=== PATIENT | female | born 1935 | race Caucasian/White ===

== ENCOUNTER 2019-10-10 19:46 | Emergency (ER) | payer MEDICARE ==
[2019-10-10 20:25] VITALS: BP 107/56; PULSE 69; RESP 18; TEMP 97.9
--- NOTE | 2019-10-10 20:48 | XR ---
EXAMINATION TYPE: XR chest 1V portable DATE OF EXAM: 10/10/2019 COMPARISON: NONE HISTORY: Fall. Pain. TECHNIQUE: FINDINGS: There is no heart failure nor confluent pneumonic infiltrate. There is mild subsegmental at electasis at the right lung base. Thoracic aorta is atheromatous. There is no pleural effusion. IMPRESSION: Mild right lung base subsegmental atelectasis.
--- NOTE | 2019-10-10 20:49 | XR ---
EXAMINATION TYPE: XR lumbar spine 2 or 3V DATE OF EXAM: 10/10/2019 COMPARISON: NONE HISTORY: Fall. Pain. TECHNIQUE: 3 views FINDINGS: There is osteopenia. There is anterior wedging of L1 and T12 up to 50%. Vertebra have anders l alignment. Sacroiliac joints are intact. IMPRESSION: Lumbar and thoracic compression fractures could be relatively acute.
--- NOTE | 2019-10-10 20:50 | XR ---
EXAMINATION TYPE: XR pelvis AP view DATE OF EXAM: 10/10/2019 COMPARISON: NONE HISTORY: Fall. Pain. TECHNIQUE: FINDINGS: Pelvic ring is intact. Proximal femurs and hip joints are intact. There is no sign of hip d ysplasia. Hip joint spaces are fairly normal. IMPRESSION: No acute abnormality of the pelvis.
--- NOTE | 2019-10-10 20:50 | XR ---
EXAMINATION TYPE: XR thoracic spine 2V DATE OF EXAM: 10/10/2019 COMPARISON: NONE HISTORY: Fall. Back pain TECHNIQUE: 3 views FINDINGS: Thoracic vertebra have normal alignment. There is anterior wedging of T12 and L1 up to 50%. There is no evidence of paraspinal mass. Posterior elements are intact. There is spurring of the end plates. IMPRESSION: Compression fractures at T12 and L1. Fractures could be relatively acute.
--- NOTE | 2019-10-10 21:26 | ED ---
General Adult HPI - General Chief complaint: Fall Stated complaint: Abd Pain Time Seen by Provider: 10/10/19 19:59 Source: patient, family, RN notes reviewed, old records reviewed Mode of arrival: EMS Limitations: altered mental status, physical limitation - History of Present Illness Initial comments: 84-year-old female history of dementia presenting for evaluation of back pain status post fall. Patient had 2 falls today both onto her backside. These were mechanical in nature. There is no head or neck trauma. Patient was transported by EMS for evaluation of pain complaints. She did have difficulty in breathing secondary to pain. No anticoagulation. Patient denying lower extremity pain. Denies chest pain or dyspnea. History of dementia and history is somewhat limited. - Related Data Previous Rx's Medication Instructions Recorded HYDROcodone/APAP 5-325MG [[place] 1 tab PO Q6HR PRN #12 tab 10/10/19 5-325] Allergies Allergy/AdvReac Type Severity Reaction Status Date / Time atorvastatin [From Lipitor] Allergy Unknown Verified 10/10/19 20:26 Review of Systems ROS Statement: Those systems with pertinent positive or pertinent negative responses have been documented in the HPI. ROS Other: All systems not noted in ROS Statement are negative. Past Medical History Past Medical History: Unable to Obtain, Dementia, Hyperlipidemia Additional Past Medical History / Comment(s): no code History of Any Multi-Drug Resistant Organisms: None Reported Past Surgical History: Unable to Obtain, Back Surgery Additional Past Surgical History / Comment(s): colon resection Smoking Status: Never smoker Past Alcohol Use History: None Reported Past Drug Use History: None Reported General Exam Limitations: altered mental status, physical limitation General appearance: alert, in no apparent distress Head exam: Present: atraumatic, normocephalic Eye exam: Present: normal appearance, PERRL Neck exam: Present: normal inspection. Absent: tenderness, meningismus Respiratory exam: Present: normal lung sounds bilaterally. Absent: respiratory distress, wheezes Cardiovascular Exam: Present: regular rate, normal rhythm GI/Abdominal exam: Present: soft. Absent: distended, tenderness, guarding Extremities exam: Present: full ROM, normal capillary refill, pedal edema. Absent: tenderness Back exam: Present: tenderness, vertebral tenderness (Mid back tenderness palpation, no step-off, no external signs of trauma) Neurological exam: Present: alert, other (good strength in bilateral legs,). Absent: motor sensory deficit Psychiatric exam: Present: normal affect, normal mood Skin exam: Present: warm, dry, intact Course Vital Signs 10/10/19 20:15 Temperature 97.9 F Pulse Rate 69 Respiratory 18 Rate Blood Pressure 107/56 O2 Sat by Pulse 97 Oximetry Medical Decision Making - Medical Decision Making 84 year old female with fall from a chair and fell from standing, 2 falls today. No head neck or back trauma. History of dementia the patient is currently at baseline. On exam she is very tender in the lower thoracic spine. No step-off. Good motor strength in both legs. She has compression fractures of both T12 and L1. She is comfortable while at rest. Pain only with palpation or significant movement. Patient can take Tylenol for pain and [place] for more severe pain. She will follow up for possible [employer] brace, with orthopedics. Disposition Clinical Impression: Fall, Fracture of thoracic vertebra, compression, Compression fracture of L1 lumbar vertebra Disposition: HOME SELF-CARE Condition: Fair Instructions (If sedation given, give patient instructions): Vertebral Com pression Fracture (ED) Prescriptions: HYDROcodone/APAP 5-325MG [[place] 5-325] 1 tab PO Q6HR PRN #12 tab PRN Reason: Pain Is patient prescribed a controlled substance at d/c from ED?: No Referrals: Pascual Cody MD [Primary Care Provider] - 1-2 days Time of Disposition: 21:25
[2019-10-10] MEDS: ACETAMINOPHEN TAB 325 MG TAB PO STA ×2 (21:30→21:42)
[2019-10-10] MEDS ORDERED: HYDROcodone/APAP 5-325MG 1 EACH TAB PO STA (21:36)
== END 2019-10-10 22:40 | disposition home or self-care (01) ==
LOC: EC 19:46 → SUPCPDRO 19:46 → EC 22:40
DX: S22.080A Wedge compression fracture of T11-T12 vertebra, initial encounter for closed fracture (principal); S32.010A Wedge compression fracture of first lumbar vertebra, initial encounter for closed fracture; F03.90 Unspecified dementia, unspecified severity, without behavioral disturbance, psychotic disturbance, mood disturbance, and anxiety; E78.5 Hyperlipidemia, unspecified; Z88.8 Allergy status to other drugs, medicaments and biological substances; W19.XXXA Unspecified fall, initial encounter
CPT/HCPCS: 71045; 72070; 72100; 72170; 99284

== ENCOUNTER 2020-06-12 04:52 | Observation (INO) | payer MEDICARE ==
[2020-06-12 06:17] LABS: Basophils % (A) 0 %; Eosinophils % (A) 0 %; HCT 42.6 % (34.0-46.0); HGB 13.3 gm/dL (11.4-16.0); Lymphocytes # (A) 0.4 k/uL (1.0-4.8); Lymphocytes % (A) 2 %; MCH 28.6 pg (25.0-35.0); MCHC 31.2 g/dL (31.0-37.0); MCV 91.7 fL (80.0-100.0); Mean Platelet Volume 7.2; Monocytes # (A) 0.9 k/uL (0-1.0); Monocytes % (A) 5 %; Neutrophils # (A) 16.2 k/uL (1.3-7.7); Neutrophils % (A) 92 %; Platelet Count 347 k/uL (150-450); RBC 4.65 m/uL (3.80-5.40); RDW 14.6 % (11.5-15.5); WBC 17.7 k/uL (3.8-10.6)
[2020-06-12 06:23] LABS: Albumin 3.1 g/dL (3.5-5.0); Calcium 8.8 mg/dL (8.4-10.2); Potassium 3.1 mmol/L (3.5-5.1); Total Bilirubin 0.6 mg/dL (0.2-1.3); Total Protein 6.2 g/dL (6.3-8.2)
[2020-06-12 06:27] LABS: Partial Thromboplastin Time 22.2 sec (22.0-30.0); Prothrombin Time 10.2 sec (9.0-12.0)
[2020-06-12] MEDS ORDERED: PANTOPRAZOLE 40 MG/10 ML VIAL IVP STA (06:42)
[2020-06-12] MEDS ORDERED: SODIUM CHLORIDE 0.9% 500 ML 500 ML IV STA (06:43)
[2020-06-12] MEDS ORDERED: NALOXONE 0.4 MG/ML 1 ML VIAL IV PRN (06:44)
[2020-06-12] MEDS ORDERED: SODIUM CHLORIDE 0.9% 1,000 ML IV SCH (06:45)
--- NOTE | 2020-06-12 07:11 | ED ---
GI Bleed HPI - General Chief complaint: GI Bleed Stated complaint: GI bleed Time Seen by Provider: 06/12/20 04:58 Source: EMS Mode of arrival: EMS Limitations: altered mental status (dementia) - History of Present Illness Initial comments: This patient is an 85-year-old woman transferred here from long-term care facility for passing blood. EMS reports that they were called about possibility of hematuria. When they arrived, was found the patient had large amount of melanotic stool in the adult diaper. The patient is not able to provide any history as she has marked underlying dementia. MD complaint: melena Onset/Timin -: hour(s) Improves with: none Worsens with: none Treatments Prior to Arrival: none - Related Data Home Medications Medication Instructions Recorded Confirmed ALPRAZolam [Xanax] 0.25 mg PO TID PRN 06/12/20 06/12/20 Acetaminophen Tab [Tylenol] 650 mg PO Q4H PRN MDD 12 TABS/24 06/12/20 06/12/20 HOURS Ascorbic Acid [Vitamin C] 500 mg PO BID@899,199906/12/20 06/12/20 Calcitonin Nasal [Fortical 1 spray NASAL DAILY@89906/12/20 06/12/20 (Miacalcin)] Cholecalciferol [Vitamin D3 (25 2,000 unit PO HS@199906/12/20 06/12/20 Mcg = 1000 Iu)] Ciprofloxacin HCl [Cipro] 500 mg PO BID@08,199906/12/20 06/12/20 Clotrimazole Cream [Lotrimin Cream] 1 applic TOPICAL BID PRN 06/12/20 06/12/20 Colloidal Oatmeal [Eucerin Eczema 1 applic TOPICAL DAILY PRN 06/12/20 06/12/20 Relief] Cyanocobalamin (Vitamin B-12) 1,000 mcg PO DAILY@89906/12/20 06/12/20 [Vitamin B-12] Escitalopram Oxalate [Lexapro] 20 mg PO DAILY@89906/12/20 06/12/20 Furosemide [Lasix] 40 mg PO DAILY@00 06/12/20 06/12/20 Kaolin/Pectin [Kaolin Pectin 30 ml PO DAILY PRN 06/12/20 06/12/20 Suspension] Magnesium Hydroxide [Milk of 2,400 mg PO HS PRN 06/12/20 06/12/20 Magnesia] Melatonin 3 mg PO HS@199906/12/20 06/12/20 Nystatin 100,000 Unit/gm Powd 1 applic TOPICAL BID@899,199906/12/20 06/12/20 [Mycostatin Powder] QUEtiapine [SEROquel] 25 mg PO TID@0900,1399,199906/12/20 06/12/20 Simvastatin 40 mg PO HS@199906/12/20 06/12/20 Spironolactone 25 mg PO DAILY@89906/12/20 06/12/20 Zinc Sulfate 220 mg PO DAILY@89906/12/20 06/12/20 busPIRone HCL 15 mg PO TID@0900,1200,1800 06/12/20 06/12/20 guaiFENesin SYRUP 100MG/5ML 10 mg PO Q6H PRN 06/12/20 06/12/20 [Robitussin] metOLazone [Zaroxolyn] 5 mg PO DAILY@0806/12/20 06/12/20 traMADol-ACETAMINOP 37.5-325MG 1 tab PO BID@899,199906/12/20 06/12/20 [Ultracet] Allergies Allergy/AdvReac Type Severity Reaction Status Date / Time atorvastatin [From Lipitor] Allergy Unknown Verified 06/12/20 09:12 Review of Systems ROS Statement: Those systems with pertinent positive or pertinent negative responses have been documented in the HPI. ROS Other: All systems not noted in ROS Statement are negative. Limitations: ROS unobtainable due to patients medical condition (dementia) Past Medical History Past Medical History: Unable to Obtain, Dementia, Hyperlipidemia Additional Past Medical History / Comment(s): no code History of Any Multi-Drug Resistant Organisms: None Reported Past Surgical History: Unable to Obtain, Back Surgery Additional Past Surgical History / Comment(s): colon resection Past Alcohol Use History: None Reported Past Drug Use History: None Reported General Exam Limitations: altered mental status General appearance: alert, in no apparent distress Head exam: Present: atraumatic, normocephalic Eye exam: Present: normal appearance Neck exam: Present: normal inspection Respiratory exam: Present: normal lung sounds bilaterally. Absent: respiratory distress, wheezes, rales, rhonchi, stridor Cardiovascular Exam: Present: normal rhythm, tachycardia, normal heart sounds. Absent: systolic murmur, diastolic murmur, rubs, gallop GI/Abdominal exam: Present: soft. Absent: distended, tenderness, guarding, rebound, rigid, mass, pulsatile mass Extremities exam: Present: normal inspection, normal capillary refill. Absent: tenderness Back exam: Present: normal inspection. Absent: tenderness Neurological exam: Present: alert Skin exam: Present: warm, dry, intact, normal color. Absent: rash Course Vital Signs 06/12/20 06/12/20 06/12/20 04:54 06:02 07:54 Temperature 97.5 F L 97.7 F Pulse Rate 113 H 117 H 106 H Respiratory 16 16 14 Rate Blood Pressure 112/78 108/58 104/61 O2 Sat by Pulse 95 97 98 Oximetry 06/12/20 06/12/20 06/12/20 09:26 11:00 15:19 Temperature 97.6 F 97.8 F Pulse Rate 106 H 107 H 112 H Respiratory 14 14 17 Rate Blood Pressure 102/66 113/87 98/68 O2 Sat by Pulse 97 97 97 Oximetry Medical Decision Making - Medical Decision Making patient is an 85-year-[facility]. The transfer paperwork does indicate that patient is no code. The patient will be admitted with GI consult. Started on Tylox. Hemodynamically patient is mildly tachycardic but blood pressure is currently normal. - Lab Data Result diagrams: 06/12/20 10:54 06/12/20 10:54 Lab Results 06/12/20 06/12/20 06/12/20 Range/Units 05:14 05:14 05:14 WBC 17.7 H (3.8-10.6) k/uL RBC 4.65 (3.80-5.40) m/uL Hgb 13.3 (11.4-16.0) gm/dL Hct 42.6 (34.0-46.0) % MCV 91.7 (80.0-100.0) fL MCH 28.6 (25.0-35.0) pg MCHC 31.2 (31.0-37.0) g/dL RDW 14.6 (11.5-15.5) % Plt Count 347 (150-450) k/uL Neutrophils % 92 % Lymphocytes % 2 % Monocytes % 5 % Eosinophils % 0 % Basophils % 0 % Neutrophils # 16.2 H (1.3-7.7) k/uL Lymphocytes # 0.4 L (1.0-4.8) k/uL Monocytes # 0.9 (0-1.0) k/uL Eosinophils # 0.0 (0-0.7) k/uL Basophils # 0.0 (0-0.2) k/uL PT 10.2 (9.0-12.0) sec INR 1.0 (<1.2) APTT 22.2 (22.0-30.0) sec Sodium 134 L (137-145) mmol/L Potassium 3.1 L (3.5-5.1) mmol/L Chloride 88 L (98-107) mmol/L Carbon Dioxide 34 H (22-30) mmol/L Anion Gap 12 mmol/L BUN 124 H* (7-17) mg/dL Creatinine 1.52 H (0.52-1.04) mg/dL Est GFR (CKD-EPI)AfAm 36 (>60 ml/min/1.73 sqM) Est GFR (CKD-EPI)NonAf 31 (>60 ml/min/1.73 sqM) Glucose 378 H (74-99) mg/dL Calcium 8.8 (8.4-10.2) mg/dL Total Bilirubin 0.6 (0.2-1.3) mg/dL AST 26 (14-36) U/L ALT 18 (4-34) U/L Alkaline Phosphatase 120 (38-126) U/L Troponin I (0.000-0.034) ng/mL Total Protein 6.2 L (6.3-8.2) g/dL Albumin 3.1 L (3.5-5.0) g/dL Blood Type Blood Type Confirm Blood Type Recheck Bld Type Recheck Status Antibody Screen Spec Expiration Date 06/12/20 06/12/20 06/12/20 Range/Units 05:14 05:14 05:15 WBC (3.8-10.6) k/uL RBC (3.80-5.40) m/uL Hgb (11.4-16.0) gm/dL Hct (34.0-46.0) % MCV (80.0-100.0) fL MCH (25.0-35.0) pg MCHC (31.0-37.0) g/dL RDW (11.5-15.5) % Plt Count (150-450) k/uL Neutrophils % % Lymphocytes % % Monocytes % % Eosinophils % % Basophils % % Neutrophils # (1.3-7.7) k/uL Lymphocytes # (1.0-4.8) k/uL Monocytes # (0-1.0) k/uL Eosinophils # (0-0.7) k/uL Basophils # (0-0.2) k/uL PT (9.0-12.0) sec INR (<1.2) APTT (22.0-30.0) sec Sodium (137-145) mmol/L Potassium (3.5-5.1) mmol/L Chloride (98-107) mmol/L Carbon Dioxide (22-30) mmol/L Anion Gap mmol/L BUN (7-17) mg/dL Creatinine (0.52-1.04) mg/dL Est GFR (CKD-EPI)AfAm (>60 ml/min/1.73 sqM) Est GFR (CKD-EPI)NonAf (>60 ml/min/1.73 sqM) Glucose (74-99) mg/dL Calcium (8.4-10.2) mg/dL Total Bilirubin (0.2-1.3) mg/dL AST (14-36) U/L ALT (4-34) U/L Alkaline Phosphatase (38-126) U/L Troponin I 0.044 H* (0.000-0.034) ng/mL Total Protein (6.3-8.2) g/dL Albumin (3.5-5.0) g/dL Blood Type A Positive Blood Type Confirm A Positive Blood Type Recheck No Previous Record Bld Type Recheck Status CABO Indicated Antibody Screen NEGATIVE Spec Expiration Date 06/15/2020 - 2313 Disposition Clinical Impression: Melena, Elevated troponin Disposition: ADMITTED IP TO THIS [facility] Condition: Poor
--- NOTE | 2020-06-12 09:45 | P.HPIM ---
History of Present Illness H&P Date: 06/12/20 Chief Complaint: Altered mental status This is an 85-year-old female who was transferred from a long-term medical facility. Patient initially exhibited increased altered mental status with underlying dementia. Patient is a poor historian. Patient does respond to pain and verbal stimuli. Patient hernandez snot open her eyes often. Her daughter, Elizabeth, was at bedside. Most of the HPI was taken from medical documentation and patient's daughter. Documentation states that EMS was called to the [facility] initially for hematuria. Once EMS arrived and her pad was examined, it was found that she had what appeared to be melanotic stool. Workup in the ER revealed a white blood cell count 17.7 sodium of 134 potassium 3.1 the BUN 124 creatinine 1.5 to glucose 378. Hemoglobin is stable at 13.3. Urine culture obtained from 06/07/2020 revealed E. coli. Patient was treated with oral ciprofloxacin. Patient denies chest pain, shortness breath, nausea, vomiting, fever, or chills. On physical exam patient exhibited abdominal pain with rebound tenderness and no gaurding. Review of Systems A 14 point review of systems was assessed. Patient was only positive for those assessment HPI Past Medical History Past Medical History: Unable to Obtain, Dementia, Hyperlipidemia Additional Past Medical History / Comment(s): no code History of Any Multi-Drug Resistant Organisms: None Reported Past Surgical History: Unable to Obtain, Back Surgery Additional Past Surgical History / Comment(s): colon resection Past Alcohol Use History: None Reported Past Drug Use History: None Reported Medications and Allergies Home Medications Medication Instructions Recorded Confirmed Type ALPRAZolam [Xanax] 0.25 mg PO TID PRN 06/12/20 06/12/20 History Acetaminophen Tab [Tylenol] 650 mg PO Q4H PRN MDD 12 TABS/24 06/12/20 06/12/20 History HOURS Ascorbic Acid [Vitamin C] 500 mg PO BID@899,199906/12/20 06/12/20 History Calcitonin Nasal [Fortical 1 spray NASAL DAILY@0900 06/12/20 06/12/20 History (Miacalcin)] Cholecalciferol [Vitamin D3 (25 2,000 unit PO HS@199906/12/20 06/12/20 History Mcg = 1000 Iu)] Ciprofloxacin HCl [Cipro] 500 mg PO BID@0800,199906/12/20 06/12/20 History Clotrimazole Cream [Lotrimin Cream] 1 applic TOPICAL BID PRN 06/12/20 06/12/20 History Colloidal Oatmeal [Eucerin Eczema 1 applic TOPICAL DAILY PRN 06/12/20 06/12/20 History Relief] Cyanocobalamin (Vitamin B-12) 1,000 mcg PO DAILY@89906/12/20 06/12/20 History [Vitamin B-12] Escitalopram Oxalate [Lexapro] 20 mg PO DAILY@89906/12/20 06/12/20 History Furosemide [Lasix] 40 mg PO DAILY@89906/12/20 06/12/20 History Kaolin/Pectin [Kaolin Pectin 30 ml PO DAILY PRN 06/12/20 06/12/20 History Suspension] Magnesium Hydroxide [Milk of 2,400 mg PO HS PRN 06/12/20 06/12/20 History Magnesia] Melatonin 3 mg PO HS@199906/12/20 06/12/20 History Nystatin 100,000 Unit/gm Powd 1 applic TOPICAL BID@899,199906/12/20 06/12/20 History [Mycostatin Powder] QUEtiapine [SEROquel] 25 mg PO TID@09,1399,199906/12/20 06/12/20 History Simvastatin 40 mg PO HS@199906/12/20 06/12/20 History Spironolactone 25 mg PO DAILY@89906/12/20 06/12/20 History Zinc Sulfate 220 mg PO DAILY@89906/12/20 06/12/20 History busPIRone HCL 15 mg PO TID@0900,1200,1800 06/12/20 06/12/20 History guaiFENesin SYRUP 100MG/5ML 10 mg PO Q6H PRN 06/12/20 06/12/20 History [Robitussin] metOLazone [Zaroxolyn] 5 mg PO DAILY@82906/12/20 06/12/20 History traMADol-ACETAMINOP 37.5-325MG 1 tab PO BID@899,199906/12/20 06/12/20 History [Ultracet] Allergies Allergy/AdvReac Type Severity Reaction Status Date / Time atorvastatin [From Lipitor] Allergy Unknown Verified 06/12/20 09:12 Physical Exam Osteopathic Statement: *. No significant issues noted on an osteopathic structural exam other than those noted in the History and Physical/Consult. Vitals: Vital Signs Temp Pulse Resp BP Pulse Ox 06/12/20 09:26 97.6 F 106 H 14 102/66 97 06/12/20 07:54 97.7 F 106 H 14 104/61 98 06/12/20 06:02 117 H 16 108/58 97 06/12/20 04:54 97.5 F L 113 H 16 112/78 95 Intake and Output 06/11/20 06/12/20 06/12/20 22:59 06:59 14:59 Other: Weight 90.718 kg General: [non toxic], [no distress], [appears at stated age] Derm: [warm], [dry] Head: [atraumatic], [normocephalic], [symmetric] Eyes: [EOMI], [no lid lag], [anicteric sclera] Mouth: [no lip lesion], [mucus membranes moist] Cardiovascular: [S1S2 reg], [no murmur], [positive posterior tibial pulse bilateral], Lungs: [CTA bilateral], [no rhonchi, no rales] , [no accessory muscle use] Abdominal: [soft], [ POSITIVEvtenderness to palpation diffuse], [ POSITIVE guarding], [no appreciable organomegaly] Ext: [no gross muscle atrophy], [no edema], [no contractures] Neuro: [ CN II-XI grossly intact], [no focal neuro deficits] Psych: [does not open eyes reponds to pain and verbal stimuli] Results CBC & Chem 7: 06/12/20 05:14 06/12/20 05:14 Labs: Abnormal Lab Results - Last 24 Hours (Table) 06/12/20 06/12/20 06/12/20 Range/Units 05:14 05:14 05:14 WBC 17.7 H (3.8-10.6) k/uL Neutrophils # 16.2 H (1.3-7.7) k/uL Lymphocytes # 0.4 L (1.0-4.8) k/uL Sodium 134 L (137-145) mmol/L Potassium 3.1 L (3.5-5.1) mmol/L Chloride 88 L (98-107) mmol/L Carbon Dioxide 34 H (22-30) mmol/L BUN 124 H* (7-17) mg/dL Creatinine 1.52 H (0.52-1.04) mg/dL Glucose 378 H (74-99) mg/dL Troponin I 0.044 H* (0.000-0.034) ng/mL Total Protein 6.2 L (6.3-8.2) g/dL Albumin 3.1 L (3.5-5.0) g/dL Thrombosis Risk Factor Assmnt - DVT/VTE Prophylaxis DVT/VTE Prophylaxis: Pharmacologic Prophylaxis ordered Assessment and Plan Assessment: 1. Sepsis secondary to E. coli UTI Culture obtained from 06/07/2020 Rocephin to be initiated after cultures are taken Cultures ordered Repeat UA ordered slow IV hydration secondary to history of heart failure per daughter reassess fluid balance in the AM. Diuretics will be held. 2. Abdominal pain with acute GI bleed Check fecal occult blood Trend hemoglobin PPI daily GI Consult CT of abdomen/pelvis without contrast NPO 3. MANUEL secondary to #1 and diuretics IV fluids Monitor BUN and creatinine Hold dieuretics Monitor fluids secondary to history of heart failure 4. Hyperglycemia secondary to Hx of diabetes (diet controlled) Insulin sliding scale Check hemoglobin A1c 5. Electrolyte abnormalities with mild hypokalemia and hyponatremia Replacements provided 6. elevated troponin level likely secondary to #1 Trend troponin 7. History of hyperlipidemia Restart statin 8. Dementia 9. Debility 10. A.M. labs 11. GI DVT prophylaxis 12. Consult Hospice End of life counselling discussed with daughter Elizabeth, . She would like to talk to hospice. Daughter would like to get updates from primary care team daily. Prognosis is poor. Patient is a DNR PCP is Dr. Cody Greater than 45 minutes spent with greater than 50% face to face contact coordinating care and counselling. Time with Patient: Greater than 30
[2020-06-12] MEDS ORDERED: [UNRECOGNIZED DRUG - OTHER] PO PRN (10:28)
[2020-06-12] MEDS ORDERED: MAGNESIUM HYDROXIDE 400 MG/5 ML PO PRN (10:28)
[2020-06-12] MEDS ORDERED: ALPRAZolam 0.25 MG TAB PO PRN (10:28)
[2020-06-12] MEDS ORDERED: ACETAMINOPHEN TAB 325 MG TAB PO PRN (10:28)
[2020-06-12] MEDS ORDERED: COLLOIDAL OATMEAL TOPICAL PRN (10:28)
[2020-06-12] MEDS ORDERED: CLOTRIMAZOLE 1% CREAM 15 GM TUBE TOPICAL PRN (10:28)
[2020-06-12] MEDS ORDERED: MORPHINE SULFATE 2 MG/ML SYRINGE IVP PRN (10:44)
[2020-06-12] MEDS ORDERED: LORazepam 2 MG/ML INJ IV PRN (10:45)
[2020-06-12] MEDS: POTASSIUM CHLORIDE 10 MEQ in WATER FOR INJECTION 1 100ML.BAG IVPB SCH ×4 (11:12→15:17)
[2020-06-12 11:32] LABS: HCT 41.8 % (34.0-46.0); HGB 12.7 gm/dL (11.4-16.0); MCH 28.4 pg (25.0-35.0); MCHC 30.5 g/dL (31.0-37.0); MCV 92.9 fL (80.0-100.0); Mean Platelet Volume 7.2; Platelet Count 320 k/uL (150-450); RBC 4.49 m/uL (3.80-5.40); RDW 14.6 % (11.5-15.5); WBC 16.6 k/uL (3.8-10.6)
[2020-06-12 11:38] LABS: Calcium 8.3 mg/dL (8.4-10.2)
[2020-06-12 11:44] LABS: Appearance,Urine Cloudy (Clear); Bacteria,Urine Moderate /hpf; Bilirubin,Urine Negative (Negative); Blood,Urine Small (Negative); Color,Urine Yellow; Glucose,Urine (UA) 1+ (Negative); Hyaline Casts,Urine 10 /lpf (0-2); Ketones,Urine Negative (Negative); Leukocyte Esterase,Urine Large (Negative); Mucus,Urine Rare /hpf; Nitrite,Urine Negative (Negative); Protein,Urine Trace (Negative); RBC,Urine 40 /hpf (0-5); Specific Gravity,Urine 1.018 (1.001-1.035); Squamous Epithelial Cell,Urine 1 /hpf (0-4); Urobilinogen,Urine <2.0 mg/dL (<2.0); WBC,Urine 20 /hpf (0-5)
--- NOTE | 2020-06-12 11:56 | XR ---
EXAMINATION TYPE: XR chest 2V DATE OF EXAM: 06/12/2020 COMPARISON: 10/10/2019 HISTORY: Shortness of breath TECHNIQUE: Frontal and lateral views of the chest are obtained. FINDINGS: Scattered senescent parenchymal changes noted. Hyperinflation compatible with COPD. There is increased linear density the left lung base which may reflect atelectasis or parenchymal sca rring. The remainder of the lungs are clear. There is a chronic elevation of the left hemidiaphragm. Heart size is stable. Mediastinal structures are stable and grossly unremarkable. No evidence for hilar prominence. Degenerative changes dorsal spine. IMPRESSION: 1. There is increased linear density the left lung base which may reflect atelectasis or parenchymal scarring. The remainder of the lungs are clear.
--- NOTE | 2020-06-12 12:16 | CT ---
EXAMINATION TYPE: CT abdomen pelvis wo con DATE OF EXAM: 06/12/2020 COMPARISON: None HISTORY: pain, acute gi bleed CT DLP: 801 mGycm Examination of the solid and hollow viscera is limited given the lack of contrast. FINDINGS: LUNG BASES: No evidence for nodule. No evidence for infiltrate. LIVER/GB: The gallbladder is unremarkable. No space-occupying hepatic lesion. PANCREAS: No pancreatic mass identified. No inflammatory process seen. SPLEEN: No evidence for splenomegaly. No intrasplenic lesions seen. ADRENALS: No adrenal nodules identified. No evidence for thickening. KIDNEYS: No evidence for renal mass. No nephrolithiasis. No hydronephrosis. Only balloon catheter is noted. The kidneys are atrophic. Large cyst is seen arising from the left kidney. BOWEL: There Is a large amount of pneumoperitoneum within the mid and lower abdomen. The site of perf oration is difficult to localize with certainty however on axial image 56 there appears to be a colle ction adjacent to the sigmoid colon measuring 5.8 x 6.7 cm which may reflect abscess with linear area of air extending to the large site of a pneumoperitoneum. Large amount of stool is seen within the r ecto sigmoid region. Lymph nodes: No evidence for adenopathy greater than 1 cm. Abdominal aorta: Atheromatous changes seen. No evidence for aneurysm. Genital organs: There is a catheter device noted within the vaginal vault with the insufflated the ba lloon device. Correlate clinically. Other: No significant abnormality. IMPRESSION: 1. There is a large amount of pneumoperitoneum noted within the mid and lower abdomen. As noted there is a collection and curvilinear air identified adjacent to the sigmoid colon which may reflect the s ite of perforation with underlying abscess. Strict clinical correlation is advised. A [place] critical message alert has been initiated for Nia Kaufman MD via the [employer] System on 06/12/2020 12:14 PM. This message alert has been sent to Nia Kaufman MD via the preferences provided by the clinician for the receipt of Radiology Critical Findings. Message ID [id number].
[2020-06-12] MEDS ORDERED: INSULIN ASPART (NovoLOG) 100 UNIT/ML VIAL SQ SCH (12:30)
--- NOTE | 2020-06-12 12:38 | P.PN ---
Progress Note - Text Progress Note Date: 06/12/20 CT of the abdomen/pelvis noted with large pneumoperitineum with a 5.8x 6.7 cm abscess. I discussed the results with patient's daughter, Elizabeth. I advised her this is an urgent matter, and her mother would require surgery immediately. Daughter agreed based on her age, co-morbidities, and quality of life, with a poor prognosis no life saving measures are to be taken, this includes surgery. A STAT hospice consult will be placed. Comfort measures are to be taken. I tried called patient's son Tanner . He did not answer, I left a message to return my call.
--- NOTE | 2020-06-12 13:11 | P.PN ---
Progress Note - Text Progress Note Date: 06/12/20 I was finally able to get a hold of patient's son Tanner and informed him about the critical status that his mother Verona is in. The perforated bowel with an abscess on CT was discussed. Patient's mother is septic. Tanner was informed that his mother was very sick and would require surgery immediately if that is what the patient and family wanted. However, secondary to patient's age, poor prognosis, decreased quality of life and co-morbidities it has been decided by the patient, Elizabeth and Tanner that the patient is a DNR and hospice would be the most reasonable action to take. I personally spoke to hospice and informed them about the patient. They are to see her today (phone )
[2020-06-12 13:20] LABS: Glucose,Whole Blood 387 mg/dL (75-99)
[2020-06-12 15:20] VITALS: RESP 17
[2020-06-12 16:50] VITALS: BP 89/60; PULSE 106; TEMP 98.4
[2020-06-12] MEDS ORDERED: CHOLECALCIFEROL 1,000 UNIT TAB PO SCH (20:00)
[2020-06-12] MEDS ORDERED: ASCORBIC ACID 500 MG TAB PO SCH (20:00)
[2020-06-12] MEDS ORDERED: NYSTATIN 100,000 UNIT/GM POWD 15 GM TOPICAL SCH (20:00)
[2020-06-12] MEDS ORDERED: traMADol-ACETAMINOP 37.5-325MG 1 EACH TAB PO SCH (20:00)
[2020-06-12] MEDS ORDERED: NON FORMULARY DRUG (Simvastatin [Simvastatin] 40 MG Tablet) PO SCH (20:00)
[2020-06-12] MEDS ORDERED: QUEtiapine 25 MG TAB PO SCH (21:00)
[2020-06-13] MEDS ORDERED: PANTOPRAZOLE 40 MG/10 ML VIAL IV SCH (09:00)
[2020-06-13] MEDS ORDERED: ZINC SULFATE 220 MG CAP PO SCH (09:00)
[2020-06-13] MEDS ORDERED: NON FORMULARY DRUG (Cyanocobalamin (Vitamin B-12) [Vitamin B-12] 1,000 MCG Tablet) PO SCH (09:00)
[2020-06-13] MEDS ORDERED: CALCITONIN 200 USP/1 NASAL SPRAY 3.7ML BTL NASAL SCH (09:00)
== END 2020-06-12 18:16 | disposition hospice, inpatient (51) ==
LOC: EC 04:52 → 3SCARD 06:46 → INTOOBSV 06:46 → 6NMEDSUR 13:40
PROVIDERS: ADMIT Internal Medicine; ATTEND Internal Medicine
DX: A41.51 Sepsis due to Escherichia coli [E. coli] (principal); N39.0 Urinary tract infection, site not specified; K92.1 Melena; I50.9 Heart failure, unspecified; E11.65 Type 2 diabetes mellitus with hyperglycemia; E87.8 Other disorders of electrolyte and fluid balance, not elsewhere classified; E78.5 Hyperlipidemia, unspecified; E87.6 Hypokalemia; E87.1 Hypo-osmolality and hyponatremia; Z51.5 Encounter for palliative care; F03.90 Unspecified dementia, unspecified severity, without behavioral disturbance, psychotic disturbance, mood disturbance, and anxiety; R53.81 Other malaise; Z79.4 Long term (current) use of insulin; Z79.899 Other long term (current) drug therapy; Z88.8 Allergy status to other drugs, medicaments and biological substances
CPT/HCPCS: 96368; 96361; 96365; 96366; 96375; 99285; 36415; 86900; 86901; 80053; 83605; 84484; 85025; 85027; 85610; 85730; 86850; 81001; 87040; 87086; 83036; 71046; 74176; G0378 ×2; J0696; J2270; J3480; C9113; 80048

== ENCOUNTER 2020-06-12 16:47 | Inpatient (IN) | payer MEDICAID ==
[2020-06-12] MEDS ORDERED: ONDANSETRON 4 MG/2 ML VIAL IVP PRN (16:50)
[2020-06-12] MEDS ORDERED: LORazepam 2 MG/ML INJ IV PRN (16:50)
[2020-06-12] MEDS ORDERED: ACETAMINOPHEN SUPPOSITORY 650 MG SUPP RECTAL PRN (16:50)
[2020-06-12] MEDS ORDERED: SCOPOLAMINE 1.5MG/72HR PATCH TRANSDERM SCH (19:00)
[2020-06-12] MEDS: MORPHINE SULFATE 2 MG/ML SYRINGE IV PRN (20:23)
[2020-06-12 21:15] VITALS: BP 92/60; PULSE 105; TEMP 97.4
[2020-06-13] MEDS: MORPHINE SULFATE 2 MG/ML SYRINGE IV PRN ×4 (01:03→17:21)
[2020-06-13 04:35] VITALS: RESP 20
--- NOTE | 2020-06-13 09:50 | P.HPIM ---
History of Present Illness H&P Date: 06/12/20 Chief Complaint: Hospice 85 y/o female presents to [facility] with acute mental status changes. Open arrival to the ED patient was evaluated for GI bleed. Hemoglobin was normal. Patient was septic. Once admitted, further work-up revealed pneumoperitoneum secondary to perforated bowel with abscess. Hospice was consulted and family agreed to place patient in Hospice with comfort measures. Review of Systems A 14 point review of symptoms was assessed Patient was positive for acute mental status changes, abdominal pain, and fatigue. All other ROS were negative. Past Medical History Past Medical History: Dementia, Diabetes Mellitus, Hyperlipidemia, Hypertension, Memory Impairment Additional Past Medical History / Comment(s): diverticulitis, pt is no code History of Any Multi-Drug Resistant Organisms: None Reported Past Surgical History: Unable to Obtain, Back Surgery Additional Past Surgical History / Comment(s): colon resection Past Anesthesia/Blood Transfusion Reactions: No Reported Reaction Smoking Status: Never smoker Past Alcohol Use History: None Reported Past Drug Use History: None Reported Medications and Allergies Home Medications Medication Instructions Recorded Confirmed Type ALPRAZolam [Xanax] 0.25 mg PO TID PRN 06/12/20 06/12/20 History Acetaminophen Tab [Tylenol] 650 mg PO Q4H PRN MDD 12 TABS/24 06/12/20 06/12/20 History HOURS Ascorbic Acid [Vitamin C] 500 mg PO BID@0900,199906/12/20 06/12/20 History Calcitonin Nasal [Fortical 1 spray NASAL DAILY@0900 06/12/20 06/12/20 History (Miacalcin)] Cholecalciferol [Vitamin D3 (25 2,000 unit PO HS@199906/12/20 06/12/20 History Mcg = 1000 Iu)] Ciprofloxacin HCl [Cipro] 500 mg PO BID@0800,199906/12/20 06/12/20 History Clotrimazole Cream [Lotrimin Cream] 1 applic TOPICAL BID PRN 06/12/20 06/12/20 History Colloidal Oatmeal [Eucerin Eczema 1 applic TOPICAL DAILY PRN 06/12/20 06/12/20 History Relief] Cyanocobalamin (Vitamin B-12) 1,000 mcg PO DAILY@0900 06/12/20 06/12/20 History [Vitamin B-12] Escitalopram Oxalate [Lexapro] 20 mg PO DAILY@0900 06/12/20 06/12/20 History Furosemide [Lasix] 40 mg PO DAILY@89906/12/20 06/12/20 History Kaolin/Pectin [Kaolin Pectin 30 ml PO DAILY PRN 06/12/20 06/12/20 History Suspension] Magnesium Hydroxide [Milk of 2,400 mg PO HS PRN 06/12/20 06/12/20 History Magnesia] Melatonin 3 mg PO HS@199906/12/20 06/12/20 History Nystatin 100,000 Unit/gm Powd 1 applic TOPICAL BID@899,199906/12/20 06/12/20 History [Mycostatin Powder] QUEtiapine [SEROquel] 25 mg PO TID@0900,1399,199906/12/20 06/12/20 History Simvastatin 40 mg PO HS@199906/12/20 06/12/20 History Spironolactone 25 mg PO DAILY@0906/12/20 06/12/20 History Zinc Sulfate 220 mg PO DAILY@89906/12/20 06/12/20 History busPIRone HCL 15 mg PO TID@0900,1200,1800 06/12/20 06/12/20 History guaiFENesin SYRUP 100MG/5ML 10 mg PO Q6H PRN 06/12/20 06/12/20 History [Robitussin] metOLazone [Zaroxolyn] 5 mg PO DAILY@0830 06/12/20 06/12/20 History traMADol-ACETAMINOP 37.5-325MG 1 tab PO BID@899,199906/12/20 06/12/20 History [Ultracet] Allergies Allergy/AdvReac Type Severity Reaction Status Date / Time atorvastatin [From Lipitor] Allergy Unknown Verified 06/12/20 09:12 Physical Exam Osteopathic Statement: *. No significant issues noted on an osteopathic structural exam other than those noted in the History and Physical/Consult. Vitals: Vital Signs Temp Pulse Resp BP Pulse Ox 06/13/20 04:00 20 06/13/20 01:00 20 06/13/20 00:00 22 06/12/20 20:50 97.4 F L 105 H 22 92/60 95 06/12/20 20:00 105 H 20 Intake and Output 11/08/20 11/09/20 11/09/20 22:59 06:59 14:59 Intake Total 20 Output Total 800 Balance 20 -800 Intake: Oral 20 Output: Urine 800 Other: Voiding Method Indwelling Catheter Indwelling Catheter Weight 90.7 kg Gen patient has a history of dementia. Patient appears well hydrated. Toxic Heart sinus tachycardia Lungs CTAB Abdomen tender to palpation with rebound and guarding Extremities negative cyanosis, edema, or erythema Psych Alert not oriented to place, time, situation Neuro CN II-IIX intact Thrombosis Risk Factor Assmnt - Choose All That Apply Any of the Below Risk Factors Present?: Yes Each Factor Represents 1 point: Swollen legs (current) Other Risk Factors: Yes Each Risk Factor Represents 2 Points: Patient confined to bed Each Risk Factor Represents 3 Points: Age 75 years or older Thrombosis Risk Factor Assessment Total Risk Factor Score: 6 Thrombosis Risk Factor Assessment Level: High Risk Assessment and Plan Assessment: 1. Sepsis secondary to perforated bowel with abscess Hospice recommendations appreciated 2. Hx of DM, demenetia, HLD, and CHF conservative management per hospice care Hospice care discussed with family and nursing staff. Greater than 60 minutes spent with greater than 50% face to face contact coordinating care and discussing end of life decision making Time with Patient: Greater than 30
--- NOTE | 2020-06-13 10:03 | P.DS ---
Providers Date of admission: 06/12/20 18:19 Expected date of discharge: 06/12/20 Attending physician: Nia Kaufman MD Consults: Hospice Primary care physician: Stated None Hospital Course: Admit diagnosis: Altered Mental Status Sepsis Pneumoperitoneum Perforated bowel Abdominal Abscess DM HLD CHF Discharge diagnosis: Hospice care plan Sepsis Perforated bowel Abdominal Abscess Altered mental status DM HLD CHF 85 y/o female present to [facility] from custodial care facility for altered mental status. Upon arrival there was concern for GI bleed. Hemoglobin was normal. Once patient was admitted and further assessment was provided, patient was found to be septic with rebound tenderness of the abdomen. CT of the abdomen was ordered and revealed a pneumoperiteum with abscess. End of care planning was discussed with family and it was decided that patient is to go into hospice. Condition: serious Activity: as tolerated Diet: as tolerated Follow-up with in patient Hospice Care Patient Condition at Discharge: Serious Plan - Discharge Summary Discharge Rx Participant: Yes New Discharge Prescriptions: No Action guaiFENesin SYRUP 100MG/5ML [Robitussin] 10 mg PO Q6H PRN PRN Reason: Cough Acetaminophen Tab [Tylenol] 650 mg PO Q4H PRN MDD 12 TABS/24 HOURS PRN Reason: Pain Or Fever > 100 Magnesium Hydroxide [Milk of Magnesia] 2,400 mg PO HS PRN PRN Reason: Constipation Kaolin/Pectin [Kaolin Pectin Suspension] 30 ml PO DAILY PRN PRN Reason: Diarrhea Colloidal Oatmeal [Eucerin Eczema Relief] 1 applic TOPICAL DAILY PRN PRN Reason: DRY SKIN ON BOTH FEET Clotrimazole Cream [Lotrimin Cream] 1 applic TOPICAL BID PRN PRN Reason: Skin Irritation ALPRAZolam [Xanax] 0.25 mg PO TID PRN PRN Reason: Anxiety Zinc Sulfate 220 mg PO DAILY@0900 Cholecalciferol [Vitamin D3 (25 Mcg = 1000 Iu)] 2,000 unit PO HS@1999 Ascorbic Acid [Vitamin C] 500 mg PO BID@899,1999 Cyanocobalamin (Vitamin B-12) [Vitamin B-12] 1,000 mcg PO DAILY@0900 traMADol-ACETAMINOP 37.5-325MG [Ultracet] 1 tab PO BID@899,1999 Spironolactone 25 mg PO DAILY@0900 Simvastatin 40 mg PO HS@1999 QUEtiapine [SEROquel] 25 mg PO TID@09,1399,1999 metOLazone [Zaroxolyn] 5 mg PO DAILY@08 Nystatin 100,000 Unit/gm Powd [Mycostatin Powder] 1 applic TOPICAL BID@899,1999 Melatonin 3 mg PO HS@1999 Furosemide [Lasix] 40 mg PO DAILY@899 Escitalopram Oxalate [Lexapro] 20 mg PO DAILY@899 Ciprofloxacin HCl [Cipro] 500 mg PO BID@799,1999 busPIRone HCL 15 mg PO TID@0900,1200,1800 Calcitonin Nasal [Fortical (Miacalcin)] 1 spray NASAL DAILY@09 Discharge Medication List ALPRAZolam [Xanax] 0.25 mg PO TID PRN 06/12/20 [History] Acetaminophen Tab [Tylenol] 650 mg PO Q4H PRN MDD 12 TABS/24 HOURS 06/12/20 [History] Ascorbic Acid [Vitamin C] 500 mg PO BID@899,199906/12/20 [History] Calcitonin Nasal [Fortical (Miacalcin)] 1 spray NASAL DAILY@89906/12/20 [History] Cholecalciferol [Vitamin D3 (25 Mcg = 1000 Iu)] 2,000 unit PO HS@199906/12/20 [History] Ciprofloxacin HCl [Cipro] 500 mg PO BID@799,199906/12/20 [History] Clotrimazole Cream [Lotrimin Cream] 1 applic TOPICAL BID PRN 06/12/20 [History] Colloidal Oatmeal [Eucerin Eczema Relief] 1 applic TOPICAL DAILY PRN 06/12/20 [History] Cyanocobalamin (Vitamin B-12) [Vitamin B-12] 1,000 mcg PO DAILY@89906/12/20 [History] Escitalopram Oxalate [Lexapro] 20 mg PO DAILY@89906/12/20 [History] Furosemide [Lasix] 40 mg PO DAILY@89906/12/20 [History] Kaolin/Pectin [Kaolin Pectin Suspension] 30 ml PO DAILY PRN 06/12/20 [History] Magnesium Hydroxide [Milk of Magnesia] 2,400 mg PO HS PRN 06/12/20 [History] Melatonin 3 mg PO HS@199906/12/20 [History] Nystatin 100,000 Unit/gm Powd [Mycostatin Powder] 1 applic TOPICAL BID@899,199906/12/20 [History] QUEtiapine [SEROquel] 25 mg PO TID@899,1399,199906/12/20 [History] Simvastatin 40 mg PO HS@199906/12/20 [History] Spironolactone 25 mg PO DAILY@89906/12/20 [History] Zinc Sulfate 220 mg PO DAILY@89906/12/20 [History] busPIRone HCL 15 mg PO TID@0900,1200,1800 06/12/20 [History] guaiFENesin SYRUP 100MG/5ML [Robitussin] 10 mg PO Q6H PRN 06/12/20 [History] metOLazone [Zaroxolyn] 5 mg PO DAILY@0806/12/20 [History] traMADol-ACETAMINOP 37.5-325MG [Ultracet] 1 tab PO BID@899,199906/12/20 [History]
--- NOTE | 2020-06-13 16:54 | P.PN ---
Subjective Progress Note Date: 06/13/20 Objective - Vital Signs Vital signs: Vital Signs Temp 97.4 F L 06/12/20 20:50 Pulse 105 H 06/12/20 20:50 Resp 20 06/13/20 04:00 BP 92/60 06/12/20 20:50 Pulse Ox 95 06/12/20 20:50 Intake & Output 06/12/20 06/13/20 06/13/20 18:59 06:59 18:59 Intake Total 20 Output Total 800 Balance -780 Weight 90.7 kg Intake: Oral 20 Output: Urine 800 Other: Voiding Method Indwelling Catheter Indwelling Catheter # Bowel Movements 3 - Constitutional General appearance: Present: no acute distress, thin Assessment and Plan (1) Melena Narrative/Plan: The patient was sepsis and GI bleed currently receiving hospice care, daughters were at bedside and they stated patient appears comfortable questions addressed at bedside Current Visit: No Status: Acute Code(s): K92.1 - MELENA SNOMED Code(s): 9165808
--- NOTE | 2020-06-14 19:31 | P.DS ---
Providers Date of admission: 06/12/20 18:19 Attending physician: Nia Kaufman MD Primary care physician: Stated None - Discharge Diagnosis(es) (1) Septic shock Status: Acute (2) Melena Status: Acute Hospital Course: The patient is an 85-year-old female who presented to the emergency room for change in mental status. In the emergency room patient had a workup that showed sepsis secondary to cartooning him on a ruptured bowel with abscess. Given her poor prognosis of the provider had a discussion with the family and they opted for hospice. The patient was placed in hospice and made comfort care patient on 06/13 Patient Condition at Discharge: Serious Plan - Discharge Summary Discharge Rx Participant: Yes New Discharge Prescriptions: No Action guaiFENesin SYRUP 100MG/5ML [Robitussin] 10 mg PO Q6H PRN PRN Reason: Cough Acetaminophen Tab [Tylenol] 650 mg PO Q4H PRN MDD 12 TABS/24 HOURS PRN Reason: Pain Or Fever > 100 Magnesium Hydroxide [Milk of Magnesia] 2,400 mg PO HS PRN PRN Reason: Constipation Kaolin/Pectin [Kaolin Pectin Suspension] 30 ml PO DAILY PRN PRN Reason: Diarrhea Colloidal Oatmeal [Eucerin Eczema Relief] 1 applic TOPICAL DAILY PRN PRN Reason: DRY SKIN ON BOTH FEET Clotrimazole Cream [Lotrimin Cream] 1 applic TOPICAL BID PRN PRN Reason: Skin Irritation ALPRAZolam [Xanax] 0.25 mg PO TID PRN PRN Reason: Anxiety Zinc Sulfate 220 mg PO DAILY@0900 Cholecalciferol [Vitamin D3 (25 Mcg = 1000 Iu)] 2,000 unit PO HS@1999 Ascorbic Acid [Vitamin C] 500 mg PO BID@899,1999 Cyanocobalamin (Vitamin B-12) [Vitamin B-12] 1,000 mcg PO DAILY@0900 traMADol-ACETAMINOP 37.5-325MG [Ultracet] 1 tab PO BID@00,1999 Spironolactone 25 mg PO DAILY@0900 Simvastatin 40 mg PO HS@2000 QUEtiapine [SEROquel] 25 mg PO TID@0900,1400,2000 metOLazone [Zaroxolyn] 5 mg PO DAILY@0830 Nystatin 100,000 Unit/gm Powd [Mycostatin Powder] 1 applic TOPICAL BID@899,1999 Melatonin 3 mg PO HS@1999 Furosemide [Lasix] 40 mg PO DAILY@09 Escitalopram Oxalate [Lexapro] 20 mg PO DAILY@899 Ciprofloxacin HCl [Cipro] 500 mg PO BID@799,1999 busPIRone HCL 15 mg PO TID@0900,1200,1800 Calcitonin Nasal [Fortical (Miacalcin)] 1 spray NASAL DAILY@0900 Discharge Medication List ALPRAZolam [Xanax] 0.25 mg PO TID PRN 06/12/20 [History] Acetaminophen Tab [Tylenol] 650 mg PO Q4H PRN MDD 12 TABS/24 HOURS 06/12/20 [History] Ascorbic Acid [Vitamin C] 500 mg PO BID@899,199906/12/20 [History] Calcitonin Nasal [Fortical (Miacalcin)] 1 spray NASAL DAILY@89906/12/20 [History] Cholecalciferol [Vitamin D3 (25 Mcg = 1000 Iu)] 2,000 unit PO HS@199906/12/20 [History] Ciprofloxacin HCl [Cipro] 500 mg PO BID@799,199906/12/20 [History] Clotrimazole Cream [Lotrimin Cream] 1 applic TOPICAL BID PRN 06/12/20 [History] Colloidal Oatmeal [Eucerin Eczema Relief] 1 applic TOPICAL DAILY PRN 06/12/20 [History] Cyanocobalamin (Vitamin B-12) [Vitamin B-12] 1,000 mcg PO DAILY@0906/12/20 [History] Escitalopram Oxalate [Lexapro] 20 mg PO DAILY@89906/12/20 [History] Furosemide [Lasix] 40 mg PO DAILY@89906/12/20 [History] Kaolin/Pectin [Kaolin Pectin Suspension] 30 ml PO DAILY PRN 06/12/20 [History] Magnesium Hydroxide [Milk of Magnesia] 2,400 mg PO HS PRN 06/12/20 [History] Melatonin 3 mg PO HS@199906/12/20 [History] Nystatin 100,000 Unit/gm Powd [Mycostatin Powder] 1 applic TOPICAL BID@899,199906/12/20 [History] QUEtiapine [SEROquel] 25 mg PO TID@09,1399,199906/12/20 [History] Simvastatin 40 mg PO HS@199906/12/20 [History] Spironolactone 25 mg PO DAILY@89906/12/20 [History] Zinc Sulfate 220 mg PO DAILY@89906/12/20 [History] busPIRone HCL 15 mg PO TID@0900,1200,1800 06/12/20 [History] guaiFENesin SYRUP 100MG/5ML [Robitussin] 10 mg PO Q6H PRN 06/12/20 [History] metOLazone [Zaroxolyn] 5 mg PO DAILY@0806/12/20 [History] traMADol-ACETAMINOP 37.5-325MG [Ultracet] 1 tab PO BID@06/12/20 [History] Discharge Disposition: - Preliminary Cause of Preliminary Cause of : Septic shock
== END 2020-06-13 23:06 | disposition expired | DRG 951 ==
LOC: 6NMEDSUR 18:19
PROVIDERS: ADMIT Internal Medicine; ATTEND Internal Medicine
DX: Z51.5 Encounter for palliative care (principal); A41.9 Sepsis, unspecified organism; K63.1 Perforation of intestine (nontraumatic); K65.1 Peritoneal abscess; R65.21 Severe sepsis with septic shock; K92.1 Melena; Z66 Do not resuscitate; I11.0 Hypertensive heart disease with heart failure; I50.9 Heart failure, unspecified; F03.90 Unspecified dementia, unspecified severity, without behavioral disturbance, psychotic disturbance, mood disturbance, and anxiety; E11.9 Type 2 diabetes mellitus without complications; E78.5 Hyperlipidemia, unspecified; K57.90 Diverticulosis of intestine, part unspecified, without perforation or abscess without bleeding; R41.82 Altered mental status, unspecified; Z79.899 Other long term (current) drug therapy; Z90.49 Acquired absence of other specified parts of digestive tract; Z88.8 Allergy status to other drugs, medicaments and biological substances